=== PATIENT | male | born 1950 | race Caucasian/White ===

== ENCOUNTER → 2024-04-24 | Outpatient (CLI) | payer OTHER ==
[~2024-04-24] MED LIST: CODACE30 PO; HYDACE5 PO; PAIN PUMP; PROC10 PO
== END | disposition home or self-care (01) ==
LOC: LAB 18:36 → LAB SHORT 18:36
DX: R35.0 Frequency of micturition (principal)
CPT/HCPCS: 87077; 87086; 87186

== ENCOUNTER 2025-01-13 18:28 | Emergency (ER) | payer OTHER ==
[~2025-01-13] VITALS: Ht 182.9 cm; Wt 108.9 kg
[2025-01-13] MEDS ORDERED: HYDROmorphone HCl/Pf 1MG SYR IV ONE ×3 (18:55→21:55)
[2025-01-13] MEDS ORDERED: Propofol 10mg/ml 20 ml Vial (Procedural) IV SCH ×2 (19:05→20:45)
[2025-01-13] MEDS ORDERED: NS 1,000 ML IV ONE (19:11)
[2025-01-13] MEDS ORDERED: NS 1,000 ML IV SCH (19:45)
[2025-01-13 22:02] VITALS: BP 145/71
== END 2025-01-13 22:26 | disposition home or self-care (01) ==
LOC: ER 18:28
DX: S73.014A Posterior dislocation of right hip, initial encounter (principal); X58.XXXA Exposure to other specified factors, initial encounter; Z79.899 Other long term (current) drug therapy; Z88.0 Allergy status to penicillin; Z88.8 Allergy status to other drugs, medicaments and biological substances
CPT/HCPCS: 73501; 73502; J1171; J2704; J7030